=== PATIENT | male | born 1935 | race Caucasian/White ===

== ENCOUNTER 2017-11-14 11:44 | Emergency (ER) | payer MEDICARE, OTHER ==
[~2017-11-14] VITALS: Ht 190.5 cm; Wt 104.3 kg
== END 2017-11-14 12:11 | disposition home or self-care (01) ==
LOC: ER 11:44
DX: R51 Headache (principal); I10 Essential (primary) hypertension
CPT/HCPCS: 99281

== ENCOUNTER → 2017-11-14 | Outpatient (CLI) | payer OTHER ==
--- NOTE | 2017-11-14 12:45 | Diagnostic Imaging Report ---
Exam: Right hip CT scan without contrast. Pelvis CT scan without contrast History: Hip fracture. Fall. Hip pain. Pelvic pain. Trauma. Comparison:None Technique: Utilizing a 64-slice multidetector CT, axial imaging was performed through the right hip without IV contrast and pelvis without IV contrast. Multiplanar reformation was performed. Findings: Right hip CT scan: There is no acute fracture, subluxation or evidence of avascular necrosis. Scattered degenerative changes are seen most pronounced at the superior lateral acetabulum and adjacent femoral head. There is associated joint space narrowing and subchondral cystic change at the superior lateral acetabulum. No osseous erosion. There is a physiologic amount of fluid in the hip joint. Scattered vascular calcifications are seen. There is mild diffuse muscle atrophy. No radiopaque foreign body is seen. Pelvis CT scan: There is no acute fracture, subluxation or evidence of avascular necrosis. Scattered degenerative changes are seen most pronounced at the sacroiliac joints and visualized lower lumbosacral spine. No osseous erosion. The urinary bladder and remainder of the visualized pelvic structures are grossly unremarkable. Scattered vascular calcifications are seen. There is mild diffuse muscle atrophy. No radiopaque foreign body is seen. 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 Signed by: Dr. Alberto Monroe M.D. on 11/14/2017 12:41 PM
== END ==
LOC: CT 10:02
PROVIDERS: ATTEND Internal Medicine Interventional Cardiology
DX: M25.551 Pain in right hip (principal); W18.39XA Other fall on same level, initial encounter
CPT/HCPCS: 72192

== ENCOUNTER → 2019-04-23 | Day surgery (SDC) | payer MEDICARE, OTHER ==
[2019-04-18 11:31] LABS: BASOPHILS % 0.4 % (0.0-1.0); EOSINOPHILS # (AUTO) 0.3 (0.0-0.4); EOSINOPHILS % 3.5 % (0.0-6.0); HEMATOCRIT 43.4 % (38.2-49.6); HEMOGLOBIN 14.1 g/dL (14.0-18.0); LYMPHOCYTES # (AUTO) 1.8 (1.0-3.2); LYMPHOCYTES % 22.1 % (18.0-39.1); MEAN CORPUSCULAR HEMOGLOBIN 31.5 pg (28-32); MEAN CORPUSCULAR HGB CONC 32.5 g/dL (31-35); MEAN CORPUSCULAR VOLUME 97.1 fL (81-99); MONOCYTES # (AUTO) 0.6 (0.2-0.8); NEUTROPHILS # (AUTO) 5.4 (2.1-6.9); NEUTROPHILS % 66.8 % (38.7-80.0); PLATELET COUNT 163 x10e3/uL (140-360); RED BLOOD COUNT 4.47 x10e6/uL (4.3-5.7); RED CELL DISTRIBUTION WIDTH 13.8 % (11.7-14.4)
[2019-04-18 11:49] LABS: ALANINE AMINOTRANSFERASE 18 IU/L (0-55); ALBUMIN 3.3 g/dL (3.5-5.0); ALKALINE PHOSPHATASE 61 IU/L (40-150); ANION GAP 12.4 mmol/L (8-16); BLOOD UREA NITROGEN 21 mg/dL (7-26); BUN/CREATININE RATIO 21 (6-25); CALCIUM 9.1 mg/dL (8.4-10.2); CARBON DIOXIDE 32 mmol/L (22-29); CHLORIDE 102 mmol/L (98-107); CREATININE, SERUM 0.98 mg/dL (0.72-1.25); EST GLOMERULAR FILTRATION RATE > 60 ML/MIN (60-); GLUCOSE 101 mg/dL (74-118); POTASSIUM 4.4 mmol/L (3.5-5.1); SODIUM 142 mmol/L (136-145)
[2019-04-23] VITALS (15 sets, daily range): BP systolic 140–178; BP diastolic 77–117
[~2019-04-23] VITALS: Ht 190.5 cm; Wt 149.7 kg
[~2019-04-23] MED LIST: BENZOCAINE 20% SPR 60 ML CAN ONE; CENTRUM SILVER1 EAC3 PO; CLONIDINE HCL0.1 MG PO; FENTANYL CITRATE/PF 100MCG/2 ML INJ ONE; FUROSEMIDE40 MG PO; HEPARIN SOD/SOD CHLORIDE 2,000 ML ONE; IBUPROFEN400 MG PO; IOPAMIDOL 370 MG/ML 200 ML INFUS..BTL INJ ONE; LIDOCAINE HCL 2% LOCAL 20 ML VIAL ONE; METOPROLOL TART50 MG PO; PROPOFOL IV EMULSION 10 MG/ML 50 ML VIAL ONE; SODIUM CHLORIDE 0.9% 1000ML 1,000 ML ONE
--- OUTSIDE RECORDS SUMMARY | 2019-04-23 10:04 | XMS REPORT | Summary of Care ---
Author Author Bell Lowery R.N. Organization Unknown Address Unknown Phone Unavailable Care Team Providers Care Storyboard Artist Name Role Phone RUBEN RIVAS M.D. Unavailable Unavailable Bell Lowery R.N. Unavailable Unavailable TABATHA ZAMAN DO Unavailable Unavailable Unavailable Unavailable Functional Status Name Dates Details Functional status health issues are not documented Status: Name Dates Details Cognitive status health issues are not documented Status: Problems Name Dates Details Limb pain (729.5, M79.609) Status: Active Medications Name Dates Details Lipitor TABS Active Tylenol TABS * Refills: 0 Active Ismo TABS * Refills: 0 Active Plavix TABS * Refills: 0 Active Lopressor TABS * Refills: 0 Active Lasix TABS * Refills: 0 Active Prinivil TABS * Refills: 0 Active cloNIDine HCl TABS * Refills: 0 Active Potassimin TABS * Refills: 0 Active Diclofenac Sodium 1 % Transdermal Gel APPLY TO LOWER EXTREMITIES, 4 GM OF GEL TO AFFECTED AREA 4 TIMES DAILY. DO NOT APPLY MORE THAN 16 GM DAILY TO ANY ONE AFFECTED JOINT. * Quantity: 500 Refills: 3 RUBEN RIVAS M.D. * Start : 10-Aug-2016 Active Allergies and Adverse Reactions Name Dates Details No Known Drug Allergies (Allergy) Status: Active Procedures Procedure Dates Details Procedures not documented Immunization Name Dates Details Immunizations not documented Social History Name Dates Details Unknown if ever smoked Vital Signs Date Test Result Details No Known Vitals to report Results Date Description Value Details Results not documented Plan of Care Name Dates Details Planned Observations Planned Goals not documented Planned Encounters Appointment; WENCESLAO QUINTANA M.D. On: 14-Jan-2019 10:15 Appointment; WENCESLAO QUINTANA M.D. On: 18-Mar-2019 9:00 Interventions Provided Discussion/Summary* Guideline Used: * Other: Schedule appointment * [facility] * Patient called concerned about the Watchman implant , patient is under the care of Dr Quintana. Patient would like to get documentation on the implant procedure done 2 years ago. Patient provided with Dr Quintana's clinic number and medical records department number. Patient was informed to be seen by the same provider who placed the device. Patient requesting appointment with Dr Boyer as well for further evaluation. Warm transfer done to [facility] for further assistance. Patient voiced understanding. * No signs or symptoms reported at this time. * Intended Caller Action: * Other: [place] appointment Instructions Name Dates Details Instructions not documented Encounters Appointment; RICKEY FREEMAN NP Encounter Diagnosis: Problem not documented On: 10-Feb-2017 13:00 Appointment; RUBEN RIVAS M.D. Encounter Diagnosis: Problem not documented On: 22-Feb-2017 14:00 Appointment; RUBEN RIVAS M.D. Encounter Diagnosis: Problem not documented On: 08-Mar-2017 14:00 Appointment; RUBEN RIVAS M.D. Encounter Diagnosis: Problem not documented On: 15-Mar-2017 14:15 Appointment; RUBEN RIVAS M.D. Encounter Diagnosis: Problem not documented On: 06-Apr-2017 14:30 Appointment; WENCESLAO QUINTANA M.D. Encounter Diagnosis: Problem not documented On: 28-Jul-2017 10:45 Appointment; WENCESLAO QUINTANA M.D. Encounter Diagnosis: Problem not documented On: 12-Feb-2018 9:45 Appointment; WENCESLAO QUINTANA M.D. Encounter Diagnosis: Problem not documented On: 05-Mar-2018 10:45
--- OUTSIDE RECORDS SUMMARY | 2019-04-23 10:04 | XMS REPORT ---
Author Author [facility] Address Unknown Phone Unavailable Care Team Providers Care Fisheries Biologist Name Role Phone MIKAL LANGLEY Unavailable Unavailable Payers Payer Name Policy Type Policy Number Effective Date Expiration Date Problems This patient has no known problems. Allergies, Adverse Reactions, Alerts Allergy Name Allergy Type Status Severity Reaction(s) Onset Date Inactive Date Treating Clinician Comments No Known Allergies DA Active U 2016-02-12 00:00:00 Medications This patient has no known medications. Encounters Start Date/Time End Date/Time Encounter Type Admission Type Attending Clinicians Care Facility Care Department Encounter ID 2019-04-05 11:59:16 Outpatient [facility] [id number] Results Test Description Test Time Test Comments Text Results Atomic Results Result Comments CT PELVIS WO [facility] [address] [address] Patient Name: PRASHANT URBAN MR #: [id number] : 1935 Age/Sex: 82/M Req #: [id number] Adm Physician: Ordered by: MIKAL LANGLEY MD Report #: [id number] Location: [place] Room/Bed: Procedure: [id number] CT/CT PELVIS WO Exam Date: 11/14/17 Exam Time: 1035 REPORT STATUS: Signed Exam: Right hip CT scan without contrast. Pelvis CT scan without contrast History: Hip fracture. Fall. Hip pain. Pelvic pain. Trauma. Comparison:None Technique: Utilizing a 64-slice multidetector CT, axial imaging was performed through the right hip without IV contrast and pelvis without IV contrast. Multiplanar reformation was performed. Findings: Right hip CT scan: There is no acute fracture, subluxation or evidence of avascular necrosis. Scattered degenerative changes are seen most pronounced at the superior lateral acetabulum and adjacent femoral head. There is associated joint space narrowing and subchondral cystic change at the superior lateral acetabulum. No osseous erosion. There is a physiologic amount of fluid in the hip joint. Scattered vascular calcifications are seen. There is mild diffuse muscle atrophy. No radiopaque foreign body is seen. Pelvis CT scan: There is no acute fracture, subluxation or evidence of avascular necrosis. Scattered degenerative changes are seen most pronounced at the sacroiliac joints and visualized lower lumbosacral spine. No osseous erosion. The urinary bladder and remainder of the visualized pelvic struc tures are grossly unremarkable. Scattered vascular calcifications are seen. There is mild diffuse muscle atrophy. No radiopaque foreign body is seen. 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 Signed by: Dr. George Monroe M.D. on 11/14/2017 12:41 PM Dictated By: GEORGE MONROE MD, MD 1241 Transcribed By: FLACA on 11/14/17 1241 COPY TO: MIKAL LANGLEY MD CT HIP RIGHT WO [place] [address] Patient Name: PRASHANT URBAN MR #: [id number] : 1935 Age/Sex: 82/M Req #: [id number] Adm Physician: Ordered by: MIKAL LANGLEY MD Report #: [id number] Location: CT Room/Bed: Procedure: [id number] CT/CT HIP RIGHT WO Exam Date: 11/14/17 Exam Time: 1035 REPORT STATUS: Signed Exam: Right hip CT scan without contrast. Pelvis CT scan without contrast History: Hip fracture. Fall. Hip pain. Pelvic pain. Trauma. Comparison:None Technique: Utilizing a 64-slice multidetector CT, axial imaging was performed through the right hip without IV contrast and pelvis without IV contrast. Multiplanar reformation was performed. Findings: Right hip CT scan: There is no acute fracture, subluxation or evidence of avascular necrosis. Scattered degenerative changes are seen most pronounced at the superior lateral acetabulum and adjacent femoral head. There is associated joint space narrowing and subchondral cystic change at the superior lateral acetabulum. No osseous erosion. There is a physiologic amount of fluid in the hip joint. Scattered vascular calcifications are seen. There is mild diffuse muscle atrophy. No radiopaque foreign body is seen. Pelvis CT scan: There is no acute fracture, subluxation or evidence of avascular necrosis. Scattered degenerative changes are seen most pronounced at the sacroiliac joints and visualized lower lumbosacral spine. No osseous erosion. The urinary bladder and remainder of the visualized pelvic st ructures are grossly unremarkable. Scattered vascular calcifications are seen. There is mild diffuse muscle atrophy. No radiopaque foreign body is seen. 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 Signed by: Dr. George Monroe M.D. on 11/14/2017 12:41 PM Dictated By: GEORGE MONROE MD, MD 1241 Transcribed By: FLACA on 11/14/17 1241 COPY TO: MIKAL LANGLEY MD
--- NOTE | 2019-04-23 22:31 | Operative Report ---
DATE OF PROCEDURE: 04/23/2019 SURGEON: Dominic Rodriguez MD INDICATION: Coronary artery disease with angina. PROCEDURES PERFORMED: 1. Left heart catheterization, selective coronary angiography. 2. Stent placed in the proximal left anterior descending artery. 3. Deployment of right wrist TR band. COMPLICATIONS: None. RECOMMENDATIONS: Dual antiplatelet therapy for at least 3 months. DESCRIPTION OF PROCEDURE: Access obtained in the right radial artery. A 5-Japanese sheath was placed. Angiomax is administered for anticoagulation. Right coronary artery and circumflex had mild 20% to 50% stenosis, proximal left anterior descending artery 90% stenosis; apical left anterior descending, 1.5 mm vessel, 80% stenosis. A decision was made to intervene on the left anterior descending artery. The left main was cannulated using an long-tip guiding catheter. Short wire was advanced across the lesion into the distal left anterior descending artery for support. Primary stent 2.75 x 12 mm [employer] Synergy deployed at 18 atmospheres with excellent end result, less than 10% residual stenosis, JD-3 flow. No complications. Right wrist TR band applied. The patient discharged home same day. Dominic Rodriguez MD KSB/MODL /[id number]
== END | disposition home or self-care (01) ==
LOC: CATH LAB 09:58
PROVIDERS: ATTEND Internal Medicine Interventional Cardiology
DX: I25.118 Atherosclerotic heart disease of native coronary artery with other forms of angina pectoris (principal); R60.0 Localized edema; G47.33 Obstructive sleep apnea (adult) (pediatric); I48.91 Unspecified atrial fibrillation; I25.10 Atherosclerotic heart disease of native coronary artery without angina pectoris; I10 Essential (primary) hypertension; E78.5 Hyperlipidemia, unspecified; E66.01 Morbid (severe) obesity due to excess calories; Z01.812 Encounter for preprocedural laboratory examination
CPT/HCPCS: 93312; 93454; C9600; 36415; 80053; 85025; 92928; 93320; 93325; C1769; C1874; C1887; J2001; J3010; J7030; Q9967

== ENCOUNTER 2020-12-08 12:42 | Observation (INO) | payer MEDICARE, OTHER ==
[2020-12-03 11:50] LABS: BASOPHILS % 0.4 % (0.0-1.0); EOSINOPHILS # (AUTO) 0.3 (0.0-0.4); EOSINOPHILS % 3.4 % (0.0-6.0); HEMATOCRIT 46.1 % (38.2-49.6); LYMPHOCYTES # (AUTO) 1.6 (1.0-3.2); LYMPHOCYTES % 19.3 % (18.0-39.1); MEAN CORPUSCULAR HEMOGLOBIN 32.3 pg (28-32); MEAN CORPUSCULAR HGB CONC 32.5 g/dL (31-35); MEAN CORPUSCULAR VOLUME 99.4 fL (81-99); MONOCYTES # (AUTO) 0.7 (0.2-0.8); MONOCYTES % 8.9 % (4.4-11.3); NEUTROPHILS # (AUTO) 5.5 (2.1-6.9); NEUTROPHILS % 67.8 % (38.7-80.0); PLATELET COUNT 134 x10e3/uL (140-360); RED BLOOD COUNT 4.64 x10e6/uL (4.3-5.7); RED CELL DISTRIBUTION WIDTH 14.1 % (11.7-14.4)
[2020-12-03 12:10] LABS: ALANINE AMINOTRANSFERASE 20 IU/L (0-55); ALBUMIN 3.6 g/dL (3.5-5.0); ALBUMIN/GLOBULIN RATIO 1.2 (0.8-2.0); ALKALINE PHOSPHATASE 53 IU/L (40-150); ANION GAP 10.9 mmol/L (8-16); BLOOD UREA NITROGEN 21 mg/dL (7-26); BUN/CREATININE RATIO 29 (6-25); CALCIUM 9.1 mg/dL (8.4-10.2); CARBON DIOXIDE 28 mmol/L (22-29); CHLORIDE 107 mmol/L (98-107); CREATININE, SERUM 0.73 mg/dL (0.72-1.25); EST GLOMERULAR FILTRATION RATE > 60 ML/MIN (60-); GLUCOSE 104 mg/dL (74-118); POTASSIUM 4.9 mmol/L (3.5-5.1); SODIUM 141 mmol/L (136-145)
[~2020-12-08] VITALS: Ht 190.5 cm; Wt 135.6 kg
[~2020-12-08 12:42] MED LIST changes: -BENZOCAINE 20% SPR 60 ML CAN ONE; -FENTANYL CITRATE/PF 100MCG/2 ML INJ ONE; -HEPARIN SOD/SOD CHLORIDE 2,000 ML ONE; -IOPAMIDOL 370 MG/ML 200 ML INFUS..BTL INJ ONE; -LIDOCAINE HCL 2% LOCAL 20 ML VIAL ONE; -PROPOFOL IV EMULSION 10 MG/ML 50 ML VIAL ONE; -SODIUM CHLORIDE 0.9% 1000ML 1,000 ML ONE
[2020-12-08] MEDS ORDERED: POTASSIUM99 M1 PO (12:46)
[2020-12-08] MEDS ORDERED: DIPHENHYDRAMINE HCL 25 MG CAP ONE (13:37)
[2020-12-08] MEDS ORDERED: ALPRAZOLAM 0.5 MG TAB ONE (13:38)
[2020-12-08] MEDS ORDERED: MIDAZOLAM HCL 2 MG/2 ML VIAL ONE (16:50)
[2020-12-08] MEDS ORDERED: FENTANYL CITRATE/PF 100MCG/2 ML INJ ONE (16:50)
[2020-12-08] MEDS ORDERED: LIDOCAINE HCL 2% LOCAL 20 ML VIAL ONE (16:50)
[2020-12-08] MEDS ORDERED: IOPAMIDOL 370 MG/ML 200 ML INFUS..BTL INJ ONE (16:52)
[2020-12-08] MEDS ORDERED: HEPARIN SOD/SOD CHLORIDE 2,000 ML ONE (16:52)
[2020-12-08] MEDS ORDERED: SODIUM CHLORIDE 0.9% 1000ML 1,000 ML ONE (16:52)
[2020-12-08] MEDS ORDERED: HYDROCODONE/APAP 5MG-325MG TAB PO PRN (17:45)
[2020-12-08] MEDS ORDERED: MORPHINE SULFATE INJ 4 MG/ML INJ 1ML IV PRN (17:45)
[2020-12-08] MEDS ORDERED: ONDANSETRON HCL INJ 2MG/ML 2ML 2 MG/ML VIAL IV PRN (17:45)
[2020-12-08] MEDS: SODIUM CHLORIDE 0.9% 1000ML 1,000 ML IV SCH (17:45)
[2020-12-08] MEDS ORDERED: ZOLPIDEM TARTRATE 5 MG TAB PO PRN (17:45)
[2020-12-08] MEDS ORDERED: ACETAMINOPHEN 325 MG TAB PO PRN (17:45)
[2020-12-08 18:15] VITALS: BP 146/97
[2020-12-08 18:30] VITALS: BP 137/98
[2020-12-08 18:45] VITALS: BP 117/77
[2020-12-08 19:10] VITALS: BP 144/95
[2020-12-08 21:00] VITALS: BP 114/76
[2020-12-08 22:00] VITALS: BP 114/76
[2020-12-08] MEDS ORDERED: MUCUS RELIEF400 MG PO (23:23)
[2020-12-08] MEDS ORDERED: MELOXICAM7.5 MG PO (23:23)
[2020-12-08] MEDS ORDERED: ASPIRIN EC81 MG PO (23:23)
[2020-12-08] MEDS ORDERED: ATORVASTATIN CA20 MG PO (23:23)
[2020-12-08] MEDS ORDERED: TYLENOL325 MG PO (23:23)
[2020-12-09 01:20] VITALS: BP 115/74
[2020-12-09] MEDS: SODIUM CHLORIDE 0.9% 1000ML 1,000 ML IV SCH ×2 (03:45→12:08)
[2020-12-09 05:27] VITALS: BP 104/62
[2020-12-09 05:40] LABS: BASOPHILS % 0.5 % (0.0-1.0); EOSINOPHILS # (AUTO) 0.2 (0.0-0.4); EOSINOPHILS % 2.4 % (0.0-6.0); HEMATOCRIT 40.8 % (38.2-49.6); HEMOGLOBIN 13.3 g/dL (14.0-18.0); LYMPHOCYTES # (AUTO) 1.6 (1.0-3.2); LYMPHOCYTES % 25.5 % (18.0-39.1); MEAN CORPUSCULAR HEMOGLOBIN 32.8 pg (28-32); MEAN CORPUSCULAR HGB CONC 32.6 g/dL (31-35); MEAN CORPUSCULAR VOLUME 100.7 fL (81-99); MONOCYTES # (AUTO) 0.8 (0.2-0.8); MONOCYTES % 11.8 % (4.4-11.3); NEUTROPHILS # (AUTO) 3.8 (2.1-6.9); NEUTROPHILS % 59.5 % (38.7-80.0); PLATELET COUNT 121 x10e3/uL (140-360); RED BLOOD COUNT 4.05 x10e6/uL (4.3-5.7); RED CELL DISTRIBUTION WIDTH 13.7 % (11.7-14.4)
[2020-12-09 06:00] LABS: ANION GAP 11.9 mmol/L (8-16); BLOOD UREA NITROGEN 19 mg/dL (7-26); BUN/CREATININE RATIO 28 (6-25); CALCIUM 8.4 mg/dL (8.4-10.2); CARBON DIOXIDE 28 mmol/L (22-29); CHLORIDE 105 mmol/L (98-107); CREATININE, SERUM 0.69 mg/dL (0.72-1.25); EST GLOMERULAR FILTRATION RATE > 60 ML/MIN (60-); GLUCOSE 87 mg/dL (74-118); POTASSIUM 3.9 mmol/L (3.5-5.1); SODIUM 141 mmol/L (136-145)
[2020-12-09 08:00] VITALS: BP 110/67
[2020-12-09] MEDS: METOPROLOL TARTRATE 50 MG TAB PO SCH ×2 (08:00→16:10)
[2020-12-09 08:29] VITALS: BP 110/61
[2020-12-09] MEDS: POTASSIUM GLUCONATE 99 MG PO SCH ×2 (09:00→15:33)
[2020-12-09] MEDS ORDERED: MULTIVITAMINS/MINERALS TAB PO SCH (09:00)
[2020-12-09] MEDS ORDERED: FUROSEMIDE 40 MG TAB PO SCH (09:00)
[2020-12-09] MEDS: CLONIDINE HCL 0.2 MG TAB PO SCH ×2 (11:03→16:09)
[2020-12-09 11:26] VITALS: BP 131/95
[2020-12-09 16:18] VITALS: BP 115/78
== END 2020-12-09 18:53 | disposition home or self-care (01) ==
LOC: CATH LAB 12:42 → MED/SURG3 17:43 → CATH LAB 20:08 → MED/SURG3 12-09 18:53
PROVIDERS: ADMIT Internal Medicine Interventional Cardiology; ATTEND Internal Medicine Interventional Cardiology
DX: I25.119 Atherosclerotic heart disease of native coronary artery with unspecified angina pectoris (principal); I11.0 Hypertensive heart disease with heart failure; I50.9 Heart failure, unspecified; Z20.822 Contact with and (suspected) exposure to COVID-19; S70.312A Abrasion, left thigh, initial encounter; S80.812A Abrasion, left lower leg, initial encounter
CPT/HCPCS: 36415 ×2; 80048; 80053; 82948; 83880; 85025 ×2; 93452; 93567; 99251; C1769; C1887; G0378 ×2; J2001; J2250; J3010; J7030; Q9967; U0002; 93454; 99153

== ENCOUNTER 2020-12-30 19:32 | Emergency (ER) | payer MEDICARE, OTHER ==
[~2020-12-30] VITALS: Ht 190.5 cm; Wt 135.6 kg
[~2020-12-30 19:32] MED LIST changes: +ASPIRIN EC81 MG PO; +ATORVASTATIN CA20 MG PO; +MELOXICAM7.5 MG PO; +MUCUS RELIEF400 MG PO; +POTASSIUM99 M1 PO; +TYLENOL325 MG PO
[2020-12-30] MEDS ORDERED: METOPROLOL TARTRATE INJ 1 MG/ML VIAL IV ONE (21:30)
[2020-12-30] MEDS ORDERED: METOPROLOL TARTRATE 25 MG TAB PO ONE ×2 (21:30→22:45)
[2020-12-31 00:39] VITALS: BP 126/84
== END 2020-12-31 00:41 ==
LOC: ER 19:49
DX: R07.81 Pleurodynia (principal); S22.41XA Multiple fractures of ribs, right side, initial encounter for closed fracture; I48.20 Chronic atrial fibrillation, unspecified; W18.30XA Fall on same level, unspecified, initial encounter; Y93.01 Activity, walking, marching and hiking; Y92.098 Other place in other non-institutional residence as the place of occurrence of the external cause; I10 Essential (primary) hypertension; E78.5 Hyperlipidemia, unspecified; I25.10 Atherosclerotic heart disease of native coronary artery without angina pectoris; Z95.5 Presence of coronary angioplasty implant and graft
CPT/HCPCS: 71045; 99284

== ENCOUNTER 2021-02-01 17:41 | Inpatient (IN) | payer MEDICARE, OTHER ==
[~2021-02-01] VITALS: Ht 190.5 cm; Wt 135.6 kg
[2021-02-01] MEDS ORDERED: MORPHINE SULFATE INJ 4 MG/ML INJ 1ML IV ONE (20:45)
[2021-02-01] MEDS ORDERED: ONDANSETRON HCL INJ 2MG/ML 2ML 2 MG/ML VIAL IV STA (20:45)
[2021-02-01] MEDS ORDERED: ACETAMINOPHEN 325 MG TAB PO ONE (21:15)
[2021-02-01 21:18] LABS: BASOPHILS % 0.4 % (0.0-1.0); EOSINOPHILS # (AUTO) 0.2 (0.0-0.4); EOSINOPHILS % 2.6 % (0.0-6.0); HEMATOCRIT 42.1 % (38.2-49.6); HEMOGLOBIN 13.4 g/dL (14.0-18.0); LYMPHOCYTES # (AUTO) 1.3 (1.0-3.2); LYMPHOCYTES % 14.1 % (18.0-39.1); MEAN CORPUSCULAR HEMOGLOBIN 32.1 pg (28-32); MEAN CORPUSCULAR HGB CONC 31.8 g/dL (31-35); MEAN CORPUSCULAR VOLUME 100.7 fL (81-99); MONOCYTES # (AUTO) 0.9 (0.2-0.8); MONOCYTES % 9.4 % (4.4-11.3); NEUTROPHILS # (AUTO) 6.6 (2.1-6.9); NEUTROPHILS % 73.1 % (38.7-80.0); PLATELET COUNT 127 x10e3/uL (140-360); RED BLOOD COUNT 4.18 x10e6/uL (4.3-5.7); RED CELL DISTRIBUTION WIDTH 13.8 % (11.7-14.4)
[2021-02-01] MEDS ORDERED: ACETAMINOPHEN 325 MG TAB ONE (21:20)
[2021-02-01 21:27] LABS: INR 1.09; PROTHROMBIN TIME 14.8 seconds (11.9-14.5)
[2021-02-01 21:28] LABS: PARTIAL THROMBOPLASTIN TIME 33.2 seconds (23.8-35.5)
[2021-02-01 21:37] LABS: ALBUMIN 3.3 g/dL (3.5-5.0); ALBUMIN/GLOBULIN RATIO 1.1 (0.8-2.0); ANION GAP 10.6 mmol/L (8-16); CALCIUM 8.7 mg/dL (8.4-10.2); CREATININE, SERUM 0.74 mg/dL (0.72-1.25); POTASSIUM 3.6 mmol/L (3.5-5.1)
[2021-02-01] MEDS ORDERED: SODIUM CHLORIDE FLUSH 10 ML SYR INJ PRN (22:00)
[2021-02-01] MEDS ORDERED: ONDANSETRON HCL INJ 2MG/ML 2ML 2 MG/ML VIAL IV PRN (22:00)
[2021-02-01] MEDS: HYDRALAZINE HCL 20 MG/ML VIAL IV PRN (23:50)
[2021-02-02] VITALS (9 sets, daily range): BP systolic 90–153; BP diastolic 67–93
[2021-02-02] MEDS: HYDRALAZINE HCL 20 MG/ML VIAL IV PRN (00:06)
[2021-02-02] MEDS ORDERED: POTASSIUM CHLORIDE 20 MEQ TAB CR PO STA (02:00)
[2021-02-02 07:33] LABS: BASOPHILS % 0.4 % (0.0-1.0); EOSINOPHILS # (AUTO) 0.2 (0.0-0.4); EOSINOPHILS % 2.4 % (0.0-6.0); HEMATOCRIT 44.1 % (38.2-49.6); HEMOGLOBIN 13.9 g/dL (14.0-18.0); LYMPHOCYTES # (AUTO) 1.3 (1.0-3.2); LYMPHOCYTES % 14.2 % (18.0-39.1); MEAN CORPUSCULAR HGB CONC 31.5 g/dL (31-35); MEAN CORPUSCULAR VOLUME 101.6 fL (81-99); MONOCYTES # (AUTO) 0.9 (0.2-0.8); NEUTROPHILS # (AUTO) 6.7 (2.1-6.9); NEUTROPHILS % 72.6 % (38.7-80.0); PLATELET COUNT 128 x10e3/uL (140-360); RED BLOOD COUNT 4.34 x10e6/uL (4.3-5.7); RED CELL DISTRIBUTION WIDTH 13.6 % (11.7-14.4)
[2021-02-02 08:06] LABS: ALBUMIN 3.3 g/dL (3.5-5.0); ALBUMIN/GLOBULIN RATIO 1.3 (0.8-2.0); ANION GAP 13.9 mmol/L (8-16); CALCIUM 8.3 mg/dL (8.4-10.2); CREATININE, SERUM 0.65 mg/dL (0.72-1.25); POTASSIUM 3.9 mmol/L (3.5-5.1)
[2021-02-02] MEDS: MORPHINE SULFATE INJ 4 MG/ML INJ 1ML IV PRN (08:30)
[2021-02-02] MEDS: CLONIDINE HCL 0.1 MG TAB PO SCH (17:00)
[2021-02-02] MEDS: METOPROLOL TARTRATE 50 MG TAB PO SCH (17:00)
[2021-02-02] MEDS: ATORVASTATIN 20 MG TAB PO SCH (21:00)
[2021-02-03] VITALS: BP 131/87
[2021-02-03 04:00] VITALS: BP 127/81
[2021-02-03 05:09] LABS: BASOPHILS % 0.4 % (0.0-1.0); EOSINOPHILS # (AUTO) 0.4 (0.0-0.4); EOSINOPHILS % 4.5 % (0.0-6.0); HEMATOCRIT 44.1 % (38.2-49.6); HEMOGLOBIN 13.7 g/dL (14.0-18.0); LYMPHOCYTES # (AUTO) 1.2 (1.0-3.2); LYMPHOCYTES % 15.2 % (18.0-39.1); MEAN CORPUSCULAR HEMOGLOBIN 32.5 pg (28-32); MEAN CORPUSCULAR HGB CONC 31.1 g/dL (31-35); MEAN CORPUSCULAR VOLUME 104.5 fL (81-99); MONOCYTES # (AUTO) 0.9 (0.2-0.8); MONOCYTES % 10.9 % (4.4-11.3); NEUTROPHILS # (AUTO) 5.5 (2.1-6.9); NEUTROPHILS % 68.6 % (38.7-80.0); PLATELET COUNT 99 x10e3/uL (140-360); RED BLOOD COUNT 4.22 x10e6/uL (4.3-5.7); RED CELL DISTRIBUTION WIDTH 13.8 % (11.7-14.4)
[2021-02-03 05:45] LABS: ANION GAP 12.1 mmol/L (8-16); CALCIUM 8.2 mg/dL (8.4-10.2); CREATININE, SERUM 0.65 mg/dL (0.72-1.25); POTASSIUM 4.1 mmol/L (3.5-5.1)
[2021-02-03] MEDS: MORPHINE SULFATE INJ 4 MG/ML INJ 1ML IV PRN ×3 (07:55→15:02)
[2021-02-03] MEDS: METOPROLOL TARTRATE 50 MG TAB PO SCH ×2 (08:00→17:00)
[2021-02-03 08:10] VITALS: BP 156/99
[2021-02-03] MEDS: MELOXICAM 7.5 MG TAB PO SCH (09:00)
[2021-02-03] MEDS: CLONIDINE HCL 0.1 MG TAB PO SCH ×2 (09:00→17:00)
[2021-02-03] MEDS: ACETAMINOPHEN 325 MG TAB PO PRN ×2 (11:31→20:33)
[2021-02-03 16:31] VITALS: BP 115/83
[2021-02-03 20:00] VITALS: BP 119/78
[2021-02-03] MEDS: ATORVASTATIN 20 MG TAB PO SCH (20:24)
[2021-02-03 21:00] VITALS: BP 119/78
[2021-02-04 04:00] VITALS: BP 118/80
[2021-02-04] MEDS: ACETAMINOPHEN 325 MG TAB PO PRN (05:25)
[2021-02-04] MEDS: METOPROLOL TARTRATE 50 MG TAB PO SCH (08:00)
[2021-02-04 08:17] VITALS: BP 128/68
[2021-02-04] MEDS: CLONIDINE HCL 0.1 MG TAB PO SCH (09:00)
[2021-02-04] MEDS: MELOXICAM 7.5 MG TAB PO SCH (09:00)
[2021-02-04 09:02] VITALS: BP 128/68
[2021-02-04] MEDS: MORPHINE SULFATE INJ 4 MG/ML INJ 1ML IV PRN (09:39)
[2021-02-04 11:41] VITALS: BP 113/78
[2021-02-04] MEDS ORDERED: ONDANSETRON HCL 4 MG ORAL DISINTEGRATING TAB PO PRN (12:15)
== END 2021-02-04 13:43 | DRG 965 ==
LOC: ER 18:16 → ERHOLD 21:59 → MED/SURG3 02-02 00:38
DX: S06.9X9A Unspecified intracranial injury with loss of consciousness of unspecified duration, initial encounter (principal); S32.591A Other specified fracture of right pubis, initial encounter for closed fracture; I48.91 Unspecified atrial fibrillation; Z91.81 History of falling; I11.0 Hypertensive heart disease with heart failure; I50.9 Heart failure, unspecified; I25.10 Atherosclerotic heart disease of native coronary artery without angina pectoris; E66.01 Morbid (severe) obesity due to excess calories; Z68.37 Body mass index [BMI] 37.0-37.9, adult; Z79.01 Long term (current) use of anticoagulants; W18.31XA Fall on same level due to stepping on an object, initial encounter; Y93.89 Activity, other specified; Y92.099 Unspecified place in other non-institutional residence as the place of occurrence of the external cause; M47.896 Other spondylosis, lumbar region; E78.5 Hyperlipidemia, unspecified; S22.32XD Fracture of one rib, left side, subsequent encounter for fracture with routine healing; S22.31XD Fracture of one rib, right side, subsequent encounter for fracture with routine healing; Z86.73 Personal history of transient ischemic attack (TIA), and cerebral infarction without residual deficits
CPT/HCPCS: 36415; 70450; 71250; 72125; 72192; 80048; 80053; 85025; 85610; 85730; 97139; 99251; 99284; J0360; J2270; J2405; U0002

== ENCOUNTER 2021-04-20 17:40 | Observation (INO) | payer MEDICARE, OTHER ==
[~2021-04-20] VITALS: Ht 188 cm; Wt 118.8 kg
[2021-04-20 18:45] LABS: BASOPHILS % 0.4 % (0.0-1.0); EOSINOPHILS # (AUTO) 0.1 (0.0-0.4); EOSINOPHILS % 1.3 % (0.0-6.0); HEMOGLOBIN 14.3 g/dL (14.0-18.0); LYMPHOCYTES # (AUTO) 2.1 (1.0-3.2); LYMPHOCYTES % 24.2 % (18.0-39.1); MEAN CORPUSCULAR HEMOGLOBIN 31.8 pg (28-32); MEAN CORPUSCULAR HGB CONC 31.8 g/dL (31-35); MONOCYTES # (AUTO) 0.8 (0.2-0.8); NEUTROPHILS # (AUTO) 5.5 (2.1-6.9); NEUTROPHILS % 64.9 % (38.7-80.0); PLATELET COUNT 148 x10e3/uL (140-360); RED CELL DISTRIBUTION WIDTH 14.1 % (11.7-14.4)
[2021-04-20 18:55] LABS: INR 1.26; PROTHROMBIN TIME 16.1 seconds (11.9-14.5)
[2021-04-20 19:06] LABS: ALBUMIN 3.7 g/dL (3.5-5.0); ALBUMIN/GLOBULIN RATIO 1.2 (0.8-2.0); ANION GAP 13.3 mmol/L (8-16); CALCIUM 9.2 mg/dL (8.4-10.2); CREATININE, SERUM 0.79 mg/dL (0.72-1.25); POTASSIUM 4.3 mmol/L (3.5-5.1)
[2021-04-20 22:40] VITALS: BP 137/92
[2021-04-20 23:00] VITALS: BP 137/92
[2021-04-20] MEDS ORDERED: FUROSEMIDE40 MG PO (23:11)
[2021-04-20] MEDS ORDERED: MUCINEX600 MG PO (23:11)
[2021-04-20] MEDS ORDERED: POTASSIUM CHLO20 ME1 PO (23:11)
[2021-04-20] MEDS ORDERED: HYDROCODON-ACE1 EA11 (23:11)
[2021-04-20 23:20] VITALS: BP 143/88
[2021-04-21] VITALS (7 sets, daily range): BP systolic 123–144; BP diastolic 79–93
[2021-04-21 05:52] LABS: CHOL/HDL RATIO 3.7 (3.9-4.7)
[2021-04-21 05:54] LABS: CREATINE KINASE 36 IU/L (30-200)
[2021-04-21] MEDS ORDERED: ACETAMINOPHEN 325 MG TAB PO PRN (12:30)
[2021-04-21 14:39] LABS: CREATINE KINASE MB 1.9 ng/mL (0-5.0)
[2021-04-21] MEDS: METOPROLOL TARTRATE 50 MG TAB PO SCH (16:11)
[2021-04-21] MEDS: CLONIDINE HCL 0.1 MG TAB PO SCH (16:11)
[2021-04-21] MEDS ORDERED: ATORVASTATIN 20 MG TAB PO SCH (21:00)
[2021-04-22] VITALS: BP 108/90
[2021-04-22 04:00] VITALS: BP 113/87
[2021-04-22 07:35] VITALS: BP 140/76
[2021-04-22] MEDS ORDERED: MELOXICAM 7.5 MG TAB PO SCH (09:00)
[2021-04-22] MEDS ORDERED: LIDOCAINE 4% PATCH TP SCH (09:00)
[2021-04-22] MEDS: CLONIDINE HCL 0.1 MG TAB PO SCH (10:02)
[2021-04-22] MEDS: METOPROLOL TARTRATE 50 MG TAB PO SCH (10:02)
[2021-04-22 12:11] VITALS: BP 126/87
[2021-04-22] MEDS ORDERED: ACETAMINOPHEN 325 MG TAB PO PRN (14:30)
[2021-04-22] MEDS ORDERED: CLONIDINE HCL 0.1 MG TAB PO SCH (17:00)
[2021-04-22] MEDS ORDERED: METOPROLOL TARTRATE 50 MG TAB PO SCH (17:00)
[2021-04-22] MEDS ORDERED: ATORVASTATIN 20 MG TAB PO SCH (21:00)
[2021-04-23] MEDS ORDERED: MELOXICAM 7.5 MG TAB PO SCH (09:00)
[2021-04-23] MEDS ORDERED: FUROSEMIDE 40 MG TAB PO SCH ×2 (09:00)
[2021-04-23] MEDS ORDERED: GUAIFENESIN 600 MG TAB PO SCH ×2 (09:00)
[2021-04-23] MEDS ORDERED: LIDOCAINE 4% PATCH TP SCH (09:00)
[2021-04-23] MEDS ORDERED: POTASSIUM CHLORIDE 20 MEQ TAB CR PO SCH ×2 (09:00)
== END 2021-04-22 16:41 | disposition home or self-care (01) ==
LOC: ER 17:44 → ERHOLD 21:44 → MED/SURG3 22:53
DX: I25.110 Atherosclerotic heart disease of native coronary artery with unstable angina pectoris (principal); Z95.818 Presence of other cardiac implants and grafts; Z20.822 Contact with and (suspected) exposure to COVID-19; G89.29 Other chronic pain; M19.90 Unspecified osteoarthritis, unspecified site; E66.9 Obesity, unspecified; Z68.33 Body mass index [BMI] 33.0-33.9, adult
CPT/HCPCS: 36415 ×2; 70450; 71045; 73502; 80053; 80061; 82550 ×2; 82553 ×2; 84484 ×2; 85025; 85610; 85730; 93005; 93306; 99284; G0378 ×3; U0002

== ENCOUNTER → 2021-11-04 | Outpatient (CLI) | payer MEDICARE ==
[~2021-11-04] MED LIST changes: +HYDROCODON-ACE1 EA11; +MUCINEX600 MG PO; +POTASSIUM CHLO20 ME1 PO
== END ==
LOC: CT 11:06
DX: M54.6 Pain in thoracic spine (principal); M54.50 Low back pain, unspecified; W19.XXXA Unspecified fall, initial encounter
CPT/HCPCS: 72128; 72131

== ENCOUNTER → 2021-11-04 | Outpatient (CLI) | payer MEDICARE | LOC: US 11:18 | PROVIDERS: ATTEND Family Medicine | DX: N28.1 Cyst of kidney, acquired (principal); R26.9 Unspecified abnormalities of gait and mobility; Z91.81 History of falling; Z99.3 Dependence on wheelchair | CPT/HCPCS: 76770 ==

== ENCOUNTER → 2022-01-17 | Outpatient (CLI) | payer MEDICARE | LOC: MRI 10:40 | PROVIDERS: ATTEND Family Medicine | DX: M54.50 Low back pain, unspecified (principal); G89.29 Other chronic pain ==